=== PATIENT | male | born 1960 | race African-American/Black ===

== ENCOUNTER 2020-03-19 14:38 | Inpatient (IN) | payer BC ==
[2020-03-19] MEDS ORDERED: Labetalol HCl 100 MG/20 ML VIAL ONE (15:26)
[2020-03-19] MEDS ORDERED: Ondansetron ODT 4 MG TAB PO PRN (15:37)
[2020-03-19] MEDS ORDERED: Senokot S 8.6-50 MG TAB PO PRN (15:37)
[2020-03-19] MEDS ORDERED: Acetaminophen 325 MG TAB PO PRN (15:37)
[2020-03-19] MEDS ORDERED: hydrALAZINE 20 MG/ML VIAL SLOW IVP PRN (16:10)
[2020-03-19] MEDS ORDERED: HumaLOG 300 UNITS/3 ML VIAL SC PRN (17:14)
[2020-03-19] MEDS ORDERED: Dextrose 5% in Water 1,000 ML IV PRN (17:14)
[2020-03-19] MEDS ORDERED: Dextrose 50% Abboject 50 ML SYRINGE SLOW IVP PRN (17:14)
[2020-03-19] MEDS ORDERED: Chlorthalidone 25 MG TAB PO SCH (17:15)
[2020-03-19 17:39] VITALS: BMI 32.3
[2020-03-19] MEDS: HumaLOG 300 UNITS/3 ML VIAL SC PRN (18:25)
[2020-03-19] MEDS ORDERED: Atorvastatin Calcium 40 MG TAB PO SCH (21:00)
[2020-03-19] MEDS ORDERED: Lisinopril 10 MG TAB PO SCH (21:00)
[2020-03-20] MEDS: HumaLOG 300 UNITS/3 ML VIAL SC PRN ×2 (05:57→17:16)
[2020-03-20 06:01] LABS: #Eosinphils 0.1 thou/uL (0.0-0.7); #Lymphocytes 1.6 thou/uL (1.20-3.40); #Monocytes 0.6 thou/uL (0.11-0.59); #Neutrophils 3.8 thou/uL (1.40-6.50); %Basophils 0.7 % (0.0-1.0); %Eosinophils 1.7 % (0.0-10.0); %Monocytes 10.1 % (0.0-10.0); %Neutrophils 61.5 % (42.0-75.0); Hemoglobin 13.9 g/dL (14.0-18.0); Mean Corpuscular HGB CONC 32.7 g/dL (32.0-36.0); Mean Corpuscular Hemoglobin 27.9 pg (27.0-31.0); Mean Corpuscular Volume 85.4 fL (78.0-98.0); Mean Platelet Volume 7.1 fL (7.4-10.4); Platelet Count 222 thou/uL (130-400); RBC Distribution Width 13.6 % (11.5-14.5); Red Blood Cell (RBC) Count 4.99 mill/uL (4.70-6.10); White Blood Cell (WBC) Count 6.1 thou/uL (4.8-10.8)
[2020-03-20 06:22] LABS: Anion Gap 14 mmol/L (10-20); BUN (Urea Nitrogen) 11 mg/dL (8.4-25.7); Calc. Creatinine Clearance 128 mL/min (70-130); Calcium 8.8 mg/dL (7.8-10.44); Carbon Dioxide 25 mmol/L (23-31); Chloride 103 mmol/L (98-107); Cholesterol 191 mg/dl (< 200 Desired); Glucose 148 mg/dL (80-115); HDL Cholesterol 38 mg/dL (>60 Neg Risk); LDL Cholesterol, Calculated 137 mg/dL; Potassium 3.9 mmol/L (3.5-5.1); Sodium 138 mmol/L (136-145); Triglycerides 82 mg/dL (Less than 150)
[2020-03-20] MEDS: Aspirin 81 mg Enteric Coated Tablet PO SCH (07:56)
[2020-03-20] MEDS: Lisinopril 5 MG TAB PO SCH (07:56)
[2020-03-20] MEDS: Enoxaparin Sodium 40 MG/0.4 ML SYRINGE SC SCH (07:57)
[2020-03-20] MEDS ORDERED: metFORMIN 500 MG TAB PO SCH (08:45)
[2020-03-20] MEDS ORDERED: Lisinopril 10 MG TAB PO SCH (09:00)
[2020-03-20] MEDS ORDERED: FLU VACC QS2020-21(6MOS UP)/PF 60 MCG/0.5 ML SYRINGE IM ONE (09:00)
[2020-03-20] MEDS: metFORMIN 500 MG TAB PO SCH (17:11)
[2020-03-20] MEDS ORDERED: Atorvastatin Calcium 40 MG TAB PO SCH (21:00)
[2020-03-20] MEDS ORDERED: Chlorthalidone 25 MG TAB PO SCH (21:00)
[2020-03-21] MEDS: Enoxaparin Sodium 40 MG/0.4 ML SYRINGE SC SCH (08:14)
[2020-03-21] MEDS: Lisinopril 5 MG TAB PO SCH (08:14)
[2020-03-21] MEDS: Aspirin 81 mg Enteric Coated Tablet PO SCH (08:14)
[2020-03-21] MEDS: metFORMIN 500 MG TAB PO SCH (08:14)
[2020-03-21 08:44] LABS: SARS-CoV-2 PCR by NAA Not Detected (NotDetected)
[2020-03-21] MEDS: HumaLOG 300 UNITS/3 ML VIAL SC PRN (11:32)
[2020-03-21 12:10] VITALS: BP 120/73; TEMP 98.3
== END 2020-03-21 15:20 | disposition home or self-care (01) | DRG 65 ==
LOC: ERS 14:38 → 2SE 15:22 → OBSVTOIN 03-20 12:21
PROVIDERS: ADMIT Emergency Medicine; ATTEND Emergency Medicine
DX: I63.9 Cerebral infarction, unspecified (principal); G81.91 Hemiplegia, unspecified affecting right dominant side; I16.0 Hypertensive urgency; R47.81 Slurred speech; E11.9 Type 2 diabetes mellitus without complications; Z86.16 Personal history of COVID-19; R00.1 Bradycardia, unspecified; Z20.822 Contact with and (suspected) exposure to COVID-19; I10 Essential (primary) hypertension; Z90.49 Acquired absence of other specified parts of digestive tract; Z79.84 Long term (current) use of oral hypoglycemic drugs
CPT/HCPCS: 36415; 36416; 70551; 80048; 80061; 83036; 85025; 87635; 90471; 90662; 90732; 93306; 96372; 96374; G0008; G0009; G0378; J1650; U0003; U0005